=== PATIENT | female | born 2000 | race Caucasian/White ===

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

== ENCOUNTER 2021-03-05 17:57 | Emergency (ER) | payer OTHER ==
[2021-03-05 20:04] LABS: CORONAVIRUS 2019 SARS-COV-2 POSITIVE (NEGATIVE); INFLUENZA A NAA NEGATIVE (NEGATIVE)
[2021-03-05 23:01] LABS: BASOPHIL 0.6 % (0-2); EOSINOPHIL 0.1 % (0-5); HGB 12.3 g/dl (12.5-16.0); LYMPHOCYTE 2.9 % (15-48); MCH 26.3 pg (25.0-31.0); MCHC 32.4 g/dL (32.0-36.0); MCV 81.2 fL (78.0-100.0); MONOCYTE 10.8 % (0-12); MPV 9.1 fL (6.0-9.5); NEUTROPHIL 84.2 % (41-80); NRBC 0; PLT 281 K/uL (150-400); RBC 4.68 M/uL (4.20-5.40); RDW 13.8 % (11.5-14.0); WBC 10.6 K/uL (4.0-10.5)
[2021-03-05 23:28] LABS: ALBUMIN 3.8 g/dL (3.4-5.0); BILIRUBIN - TOTAL 0.2 mg/dL (0.2-1.0); BUN/CREAT RATIO (CALC) 10.1 RATIO; CREATININE 0.69 mg/dL (0.51-0.95); GLOBULIN (CALCULATION) 3.6 g/dL; POTASSIUM 3.4 mmol/L (3.5-5.1); TOTAL PROTEIN 7.4 g/dL (6.4-8.2)
[2021-03-06] MEDS ORDERED: ONDANSETRON ODT4 MG SL (02:17)
[2021-03-06] MEDS ORDERED: PULMICORT FLE180 MCG INH (02:17)
[2021-03-06] MEDS ORDERED: TESSALON PERLE100 MG PO (02:17)
[2021-03-06] MEDS ORDERED: IBUPROFEN800 MG PO (02:17)
[2021-03-06] MEDS ORDERED: VENTOLIN HFA IN18 GM INH (02:17)
== END 2021-03-06 03:30 | disposition home or self-care (01) ==
LOC: FER 17:57
PROVIDERS: Internal Medicine
DX: U07.1 COVID-19 (principal); E86.0 Dehydration; Z88.1 Allergy status to other antibiotic agents
CPT/HCPCS: 36415; 71045; 80053; 84703; 85025; 94640; 94664; J1885; J2405; J7030; J7040; U0002